=== PATIENT | male | born 1990 | race Caucasian/White ===

== ENCOUNTER 2019-09-23 13:59 | Emergency (ER) | payer OTHER ==
[~2019-09-23] VITALS: Ht 182.9 cm; Wt 68.0 kg
[2019-09-23 14:10] VITALS: BP_SYST 141
== END 2019-09-23 16:15 | disposition home or self-care (01) ==
LOC: SED 13:59
DX: T16.2XXA Foreign body in left ear, initial encounter (principal); W22.8XXA Striking against or struck by other objects, initial encounter; Y93.89 Activity, other specified; Y92.89 Other specified places as the place of occurrence of the external cause; Y99.8 Other external cause status
CPT/HCPCS: 99282